=== PATIENT | female | born 1985 | race Caucasian/White ===

== ENCOUNTER 2019-12-09 19:27 | Emergency (ER) | payer SELFPAY ==
--- NOTE | 2019-12-09 20:04 | ED ---
Back Pain - HPI Summary HPI Summary: This pt is a 34 y/o female presenting to [facility] c/o low back pain s/p bending over and injuring back at around 1920. Pt reports she was trying to put on her boots while bending over when she "tweaked" her back. Pt states her back pain is aggravated by movement and twisting her upper body. She rates her pain 5/10 while at rest. Denies radiating pain down to her legs. Denies urinary or fecal dysfunction, numbness, tingling or weakness in lower extremities, abd pain, fever. LMP: over 25 days now but states she is regular. Denies any risk for . No significant PMHx. Pt states she takes Flonase and stool softeners. Denies tobacco, alcohol, or drug use. - History of Current Complaint Chief Complaint: EDBackInjuryPain Stated Complaint: BACK INJURY PER PT Time Seen by Provider: 12/09/19 19:47 Hx Obtained From: Patient Onset/Duration: Sudden Onset, Still Present Onset/Duration: Started Minutes Ago, Still Present Timing: Constant Back Pain Location: Is Discrete @ - low back Severity Initially: Moderate Pain Intensity: 5 Pain Scale Used: 0-10 Numeric Aggravating Symptom(s): Movement Alleviating Symptom(s): Rest Associated Signs And Symptoms: Negative: Fever, Weakness, Numbness, Tingling, Abdominal Pain, Bladder Incontinence, Bowel Incontinence - Allergies/Home Medications Allergies/Adverse Reactions: Allergies Allergy/AdvReac Type Severity Reaction Status Date / Time No Known Allergies Allergy Verified 12/09/19 20:34 PMH/Surg Hx/FS Hx/Imm Hx Endocrine/Hematology History: Denies: Hx Diabetes Cardiovascular History: Denies: Hx Hypertension Psychiatric History: Denies: Hx of Violent Episodes Against Others - Surgical History Surgical History: Yes Surgery Procedure, Year, and Place: T&A Infectious Disease History: No Infectious Disease History: Denies: Traveled Outside the [place] in Last 30 Days - Family History Known Family History: Positive: Diabetes - Type 1 DM brother and sister. Type 2 DM grandmother - Social History Alcohol Use: Weekly Hx Substance Use: No Substance Use Type: Reports: None Hx Tobacco Use: No Smoking Status (MU): Never Smoked Tobacco Review of Systems Negative: Fever Negative: Abdominal Pain Negative: incontinence Musculoskeletal: Other - POSITIVE: back pain Negative: Weakness, Paresthesia, Numbness All Other Systems Reviewed And Are Negative: Yes Physical Exam - Summary Physical Exam Summary: VITAL SIGNS: Reviewed. GENERAL: Patient is a well-developed and nourished female who is lying comfortable in the stretcher. Patient is not in any acute respiratory distress. HEAD AND FACE: No signs of trauma. No ecchymosis, hematomas or skull depressions. No sinus tenderness. EYES: PERRLA, EOMI x 2, No injected conjunctiva, no nystagmus. EARS: Hearing grossly intact. Ear canals and tympanic membranes are within normal limits. MOUTH: Oropharynx within normal limits. NECK: Supple, trachea is midline, no adenopathy, no JVD, no carotid bruit, no c- spine tenderness, neck with full ROM. CHEST: Symmetric, no tenderness at palpation LUNGS: Clear to auscultation bilaterally. No wheezing or crackles. CVS: Regular rate and rhythm, S1 and S2 present, no murmurs or gallops appreciated. ABDOMEN: Soft, non-tender. No signs of distention. No rebound, no guarding, and no masses palpated. Bowel sounds are normal. MSK: Tenderness in the paraspinal muscles of both sides of the lumbar spine. NEURO: Alert and oriented x 3. No acute neurological deficits. Speech is normal and follows commands. SKIN: Dry and warm Triage Information Reviewed: Yes Vital Signs On Initial Exam: Initial Vitals Temp Pulse Resp BP Pulse Ox 98.3 F 79 22 131/89 100 12/09/19 19:30 12/09/19 19:30 12/09/19 19:30 12/09/19 19:30 12/09/19 19:30 Vital Signs Reviewed: Yes Procedures - Sedation Patient Received Moderate/Deep Sedation with Procedure: No Diagnostics - Vital Signs Vital Signs Temp Pulse Resp BP Pulse Ox 12/09/19 19:30 98.3 F 79 22 131/89 100 - Laboratory Lab Statement: Any lab studies that have been ordered have been reviewed, and results considered in the medical decision making process. - Radiology Lumbar spine XR Radiology Interpretation Completed By: ED Physician Summary of Radiographic Findings: Negative for fracture or dislocation. Re-Evaluation - Re-Evaluation First Eval Re-Evaluation Time: 20:58 Change: Improved Comment: Pt is feeling better after medications. She is ambulating in the ED with minimal pain. Reviewed results with patient and discussed discharge plan. Back Pain Course/Dx - Course Assessment/Plan: This pt is a 34 y/o female presenting to [facility] c/o low back pain s/p bending over and injuring back at around 1920. Pt reports she was trying to put on her boots while bending over when she "tweaked" her back. Pt states her back pain is aggravated by movement and twisting her upper body. She rates her pain 5/10 while at rest. Denies radiating pain down to her legs. Denies urinary or fecal dysfunction, numbness, tingling or weakness in lower extremities, abd pain, fever. LMP: over 25 days now but states she is regular. Denies any risk for . No significant PMHx. Pt states she takes Flonase and stool softeners. Denies tobacco, alcohol, or drug use. Lumbar spine x-ray impression: No acute fracture or dislocation. In the ED course the patient was given Toradol, Decadron and Robaxin. After medications symptoms have improved. Patient is ambulating with minimal pain. Therefore she will be discharged home with follow-up from her PCP. At this point I discussed all the findings and test results with the patient. Patient was instructed to return to the emergency room immediately if any of the symptoms return or worsen. Patient understands and agrees. Patient is able to ambulate freely w/o aid or limp in the ER. Plan of care was discussed with the patient and patient understands and agrees. All questions were answered at patient satisfaction. There were no further complaints or concerns. Neurological exam before discharge: Patient is alert and oriented x 3. No acute neurological deficits. Patient is hemodynamically stable. Patient is to follow up with her primary care physician in the next 2-3 days. She understands and agrees. - Diagnoses Differential Diagnosis/HQI/PQRI: Positive: Arthritis, Herniated Disc, Strain, Sprain Provider Diagnoses: Back pain Discharge ED - Sign-Out/Discharge Documenting (check all that apply): Patient Departure - Discharge home - Discharge Plan Condition: Stable Disposition: HOME Prescriptions: Ibuprofen TAB* [Motrin TAB* 600 MG] 600 mg PO Q8H PRN #30 tab PRN Reason: Pain - Moderate Methocarbamol TAB* [Robaxin 500 MG TAB*] 500 mg PO TID PRN #12 tab PRN Reason: Spasms - Muscle methylPREDNISolone [Medrol Dosepak 4 MG*] 0 mg PO .SEE ELBERT INSTRUCTION #1 elbert Patient Education Materials: Back Pain (ED) Forms: *Work Release Referrals: Colin Lovelace MD [Medical Doctor] - Additional Instructions: FOLLOW UP WITH YOUR PRIMARY CARE PROVIDER IN 2-3 DAYS. RETURN TO THE ED FOR ANY NEW OR WORSENING SYMPTOMS. - Billing Disposition and Condition Condition: STABLE Disposition: Home - Attestation Statements Document Initiated by Scribe: Yes Documenting Scribe: Dara Barahona Provider For Whom César is Documenting (Include Credential): Chris Woods MD Scribe Attestation: Dara Clements, scribed for Chris Woods MD on 12/09/19 at 2151. Scribe Documentation Reviewed: Yes Provider Attestation: The documentation as recorded by the Dara porter accurately reflects the service I personally performed and the decisions made by Chris holland MD Status of Scribe Document: Viewed
[2019-12-09] MEDS ORDERED: Dexamethasone TAB* 4 MG PO ONE (20:12)
[2019-12-09] MEDS ORDERED: Ketorolac *IM* INJ* 60 MG/2 ML VIAL IM ONE (20:12)
[2019-12-09] MEDS ORDERED: Methocarbamol TAB* 500 MG PO ONE (20:12)
[2019-12-09 21:24] VITALS: BP 113/80
== END 2019-12-09 21:22 | disposition home or self-care (01) ==
LOC: ED 19:27
DX: M54.5 Low back pain (principal)
CPT/HCPCS: 72100; 96372; 99283; A9270-GY; J1885; J8540